=== PATIENT | female | born 1995 | race Caucasian/White ===

== ENCOUNTER 2021-07-04 13:47 | Outpatient (CLI) | payer BC ==
[~2021-07-04 13:47] MED LIST: FLONASE ALLER15.8 ML
== END 2021-07-04 16:50 | disposition home or self-care (01) ==
LOC: GENOP 13:47
DX: O47.02 False labor before 37 completed weeks of gestation, second trimester (principal); Z3A.25 25 weeks gestation of pregnancy
CPT/HCPCS: 81001; 82731; 96360; J0702; J7120

== ENCOUNTER 2021-07-25 17:52 | Outpatient (CLI) | payer BC | END 2021-07-25 21:37 | disposition home or self-care (01) | LOC: GENOP 17:52 | DX: O47.02 False labor before 37 completed weeks of gestation, second trimester (principal); O24.410 Gestational diabetes mellitus in pregnancy, diet controlled; Z3A.28 28 weeks gestation of pregnancy | CPT/HCPCS: 96360; 96361; J3105; J7120 ==

== ENCOUNTER 2021-08-25 19:46 | Outpatient (CLI) | payer BC | END 2021-08-25 22:45 | disposition home or self-care (01) | LOC: GENOP 19:46 | DX: O47.03 False labor before 37 completed weeks of gestation, third trimester (principal); Z3A.33 33 weeks gestation of pregnancy | CPT/HCPCS: 81001; 82731; G0463 ==

== ENCOUNTER 2021-08-26 13:01 | Outpatient (CLI) | payer BC | END 2021-08-26 16:38 | disposition home or self-care (01) | LOC: GENOP 13:01 | DX: O47.03 False labor before 37 completed weeks of gestation, third trimester (principal); Z3A.33 33 weeks gestation of pregnancy | CPT/HCPCS: G0463 ==

== ENCOUNTER 2021-09-09 14:47 | Outpatient (CLI) | payer BC | END 2021-09-09 17:45 | disposition home or self-care (01) | LOC: GENOP 14:47 | DX: O47.03 False labor before 37 completed weeks of gestation, third trimester (principal); Z3A.35 35 weeks gestation of pregnancy; Z98.890 Other specified postprocedural states | CPT/HCPCS: G0463 ==

== ENCOUNTER 2021-09-21 12:25 | Outpatient (CLI) | payer BC ==
[2021-09-21 13:15] LABS: HEMOGLOBIN 12.3 gm/dl (12.3-15.3); RED BLOOD COUNT 4.12 M/UL (4.00-5.10); WHITE BLOOD COUNT 9.3 K/UL (4.5-11.0)
[2021-09-21 13:39] LABS: BUN/CREATININE RATIO 13 (0-10)
[2021-09-22] MEDS ORDERED: PRENATABS FA T1 EACH PO (07:24)
[2021-09-22] MEDS ORDERED: HYDROCODON-ACE1 EAC4 PO (09:32)
[2021-09-22] MEDS ORDERED: DOCUSATE SODIU100 MG PO (09:32)
[2021-09-22] MEDS ORDERED: IBUPROFEN600 MG PO (09:32)
== END 2021-09-21 13:30 | disposition home or self-care (01) ==
LOC: GENOP 12:25
PROVIDERS: Obstetrics & Gynecology
DX: Z01.812 Encounter for preprocedural laboratory examination (principal); O82 Encounter for cesarean delivery without indication
CPT/HCPCS: 80053; 81001; 85025

== ENCOUNTER 2021-09-22 06:56 | Inpatient (IN) | payer BC ==
[~2021-09-22] VITALS: Ht 162.6 cm; Wt 99.8 kg
[2021-09-22] MEDS ORDERED: PRENATABS FA T1 EACH PO (07:24)
[2021-09-22] MEDS ORDERED: DOCUSATE SODIU100 MG PO (09:32)
[2021-09-22] MEDS ORDERED: HYDROCODON-ACE1 EAC4 PO (09:32)
[2021-09-22] MEDS ORDERED: IBUPROFEN600 MG PO (09:32)
[2021-09-23 07:06] LABS: HEMOGLOBIN 10.8 gm/dl (12.3-15.3)
== END 2021-09-24 15:10 | disposition home or self-care (01) | DRG 788 ==
LOC: OB 06:56
PROVIDERS: ADMIT Obstetrics & Gynecology
PROC: 3E0234Z Introduction of Serum, Toxoid and Vaccine into Muscle, Percutaneous Approach (ICD-10-PCS; 2021-09-22)
PROC: 10D00Z1 Extraction of Products of Conception, Low, Open Approach (ICD-10-PCS; principal; 2021-09-22 09:00)
DX: O24.420 Gestational diabetes mellitus in childbirth, diet controlled (principal); O34.211 Maternal care for low transverse scar from previous cesarean delivery; Z37.0 Single live birth; Z3A.37 37 weeks gestation of pregnancy; Z83.3 Family history of diabetes mellitus; Z82.0 Family history of epilepsy and other diseases of the nervous system; Z23 Encounter for immunization
CPT/HCPCS: 82800; 82962; 85014; 85018; 90715; C9113; J0690; J1885; J2274; J2370; J2405; J2590; J3010